=== PATIENT | male | born 1955 | race Caucasian/White ===

== ENCOUNTER 2016-08-23 06:15 | Day surgery (SDC) | payer BC ==
[~2016-08-23 06:15] MED LIST: IBUPROFEN200 M2 PO; NEXIUM40 M1 PO
[2016-08-23 07:29] LABS: INR 0.9 INR (0.9-1.1)
--- NOTE | 2016-08-23 21:48 | NUR ---
VIRTUAL CARE NOTE: ASSESSMENT DEFERRED. PT SLEEPING X3. WILL CONTINUE WITH CHART REVIEW.
[2016-08-24] MEDS ORDERED: PERCOCET 5-3251 EACH PO (11:53)
[2016-08-24] MEDS ORDERED: CIPROFLOXACIN250 M1 PO (11:53)
== END 2016-08-24 13:10 ==
LOC: SHSB 06:15 → ORW 08:57 → PACU 10:09 → 5WD 11:35
PROVIDERS: Urology
PROC: 0TBB8ZZ Excision of Bladder, Via Natural or Artificial Opening Endoscopic (ICD-10-PCS; principal; 2016-08-23)
DX: C67.3 Malignant neoplasm of anterior wall of bladder (principal); C67.4 Malignant neoplasm of posterior wall of bladder; C67.8 Malignant neoplasm of overlapping sites of bladder; K21.9 Gastro-esophageal reflux disease without esophagitis; Z87.891 Personal history of nicotine dependence
CPT/HCPCS: J1956; J2270; J2405